=== PATIENT | female | born 1995 | race Caucasian/White ===

== ENCOUNTER 2023-03-04 08:11 | Observation (INO) | payer OTHER ==
[~2023-03-04] VITALS: Ht 154.9 cm; Wt 69.5 kg
[2023-03-04] VITALS (9 sets, daily range): BP systolic 129–153; BP diastolic 81–83; PULSE 94–122; RESP 16–26; TEMP 97.9–98.3; O2SAT 91–96
[2023-03-04] MEDS ORDERED: predniSONE 20 MG TAB PO ONE (08:50)
[2023-03-04] MEDS ORDERED: ALBUTEROL SULFATE/IPRATROPIU 3 ML SOL IH ONE ×2 (08:50→11:15)
[2023-03-04 09:36] LABS: FLU A ANTIGEN negative (NEGATIVE); FLU B ANTIGEN negative (NEGATIVE)
[2023-03-04] MEDS ORDERED: methylPREDNISolone SS 125 MG/2 ML VIAL IVP ONE (10:15)
[2023-03-04 10:42] LABS: BASOPHILS % (AUTO) 0.2 % (0.0-2.0); EOSINOPHILS # (AUTO) 0.6 K/uL (0-0.4); EOSINOPHILS % (AUTO) 5.2 % (0.0-4.0); HEMATOCRIT 41.2 % (36-48); HEMOGLOBIN 14.2 g/dL (12.0-16.0); LYMPHOCYTES # (AUTO) 1.5 K/uL (2.5-16.5); LYMPHOCYTES % (AUTO) 12.2 % (20.5-51.1); MEAN CORPUSCULAR HEMOGLOBIN 30 pg (27-31); MEAN CORPUSCULAR HGB CONC 35 g/dL (33-37); MEAN CORPUSCULAR VOLUME 87.4 fL (80-94); MONOCYTES # (AUTO) 0.6 K/uL (0.8-1.0); MONOCYTES % (AUTO) 5.3 % (1.7-9.3); NEUTROPHILS # (AUTO) 9.4 K/uL (1.8-7.7); NEUTROPHILS % (AUTO) 77.1 % (42.2-75.2); PLATELET COUNT (AUTO) 265 K/uL (140-450); RED BLOOD CELL COUNT(AUTO) 4.72 MIL/uL (4.20-5.40); RED CELL DISTRIBUTION WIDTH 13.1 % (11.6-13.7); WHITE BLOOD COUNT (AUTO) 12.2 K/uL (4.8-10.8)
[2023-03-04 10:52] LABS: BLOOD GAS BASE EXCESS -1.9 mmol/L (-2.0-2.0); BLOOD GAS HCO3 22.1 mmol/L (22-26); BLOOD GAS PCO2 35.7 mmHg (35-45); BLOOD GAS PO2 63.2 mmHg (75-100)
[2023-03-04 10:53] LABS: BLOOD GAS O2 SAT% 92.6 % (92.0-98.5)
[2023-03-04 11:10] LABS: ALANINE AMINOTRANSFERASE 40 U/L (12-78); ALBUMIN 3.8 g/dL (3.4-5.0); ALKALINE PHOSPHATASE 63 U/L (50-136); ANION GAP 10.6 (8-16); ASPARTATE AMINOTRANSFERASE 23 U/L (15-37); CARBON DIOXIDE 27.5 mmol/L (21-32); CHLORIDE 102 mmol/L (98-107); CREATININE 0.7 mg/dL (0.6-1.3); GFR ARICAN-AMERICAN 131 mL/min (>90); GFR NON ARICAN-AMERICAN 108 mL/min (>90); GLUCOSE 131 mg/dL (74-106); POTASSIUM 3.1 mmol/L (3.5-5.1); SODIUM SERUM 137 mmol/L (136-145); TOTAL BILIRUBIN 0.4 mg/dL (0.0-1.0); TOTAL PROTEIN, SERUM 7.7 g/dL (6.4-8.2); UREA NITROGEN, BLOOD 6 mg/dL (7-18)
[2023-03-04] MEDS ORDERED: CLOB0.0525 TP (12:23)
[2023-03-04] MEDS ORDERED: MAG SULF 2000 MG/WATER PREMIX 50 ML IV ONE (13:15)
[2023-03-04] MEDS ORDERED: ACETAMINOPHEN 325 MG TAB PO PRN (13:25)
[2023-03-04] MEDS ORDERED: MAGNESIUM OXIDE 400 MG TAB PO PRN (13:25)
[2023-03-04] MEDS ORDERED: ONDANSETRON 4 MG/2 ML VIAL IVP PRN (13:25)
[2023-03-04] MEDS ORDERED: POTASSIUM CHLORIDE 10 MEQ TABER PO PRN (13:25)
[2023-03-04] MEDS ORDERED: HYDROcodone/APAP 5/325 MG 1 TAB TAB PO PRN (13:25)
[2023-03-04] MEDS ORDERED: MORPHINE SULFATE 4 MG/ML SYR IVP PRN (13:25)
[2023-03-04] MEDS ORDERED: POTASSIUM CHLORIDE 10 MEQ TABER PO ONE (13:30)
[2023-03-04] MEDS ORDERED: methylPREDNISolone SS 40 MG/ML VIAL IVP SCH (13:35)
[2023-03-04] MEDS ORDERED: AZITHROMYCIN 500 MG in DEXTROSE 5% 250 ML IV SCH (15:00)
[2023-03-04] MEDS: NACL 0.9% 1,000 ML IV SCH (15:37)
[2023-03-04] MEDS ORDERED: AZITHROMYCIN 500 MG INJ VIAL IV ONE (16:45)
[2023-03-04] MEDS: ALBUTEROL SULFATE/IPRATROPIU 3 ML SOL IH SCH (19:01)
[2023-03-04] MEDS: methylPREDNISolone SS 40 MG/ML VIAL IVP SCH (21:16)
[2023-03-05] VITALS: BP 97/55; PULSE 85; PULSE 95; RESP 20; TEMP 97.8; O2SAT 94
[2023-03-05 00:47] VITALS: PULSE 120; RESP 22; O2SAT 94
[2023-03-05] MEDS: ALBUTEROL SULFATE/IPRATROPIU 3 ML SOL IH SCH ×2 (00:47→07:41)
[2023-03-05] MEDS ORDERED: MELATONIN 3 MG TAB PO PRN (01:10)
[2023-03-05] MEDS: NACL 0.9% 1,000 ML IV SCH ×2 (01:55→04:28)
[2023-03-05 04:00] VITALS: BP 113/78; PULSE 102; PULSE 85; RESP 18; TEMP 97.5; O2SAT 96
[2023-03-05] MEDS: methylPREDNISolone SS 40 MG/ML VIAL IVP SCH (04:22)
[2023-03-05 06:33] LABS: HEMATOCRIT 38.9 % (36-48); HEMOGLOBIN 13.2 g/dL (12.0-16.0); LYMPHOCYTES # (AUTO) 1.2 K/uL (2.5-16.5); MEAN CORPUSCULAR HEMOGLOBIN 30 pg (27-31); MEAN CORPUSCULAR HGB CONC 34 g/dL (33-37); MEAN CORPUSCULAR VOLUME 88.1 fL (80-94); MONOCYTES # (AUTO) 0.8 K/uL (0.8-1.0); MONOCYTES % (AUTO) 5.7 % (1.7-9.3); NEUTROPHILS # (AUTO) 12.4 K/uL (1.8-7.7); NEUTROPHILS % (AUTO) 86.3 % (42.2-75.2); PLATELET COUNT (AUTO) 287 K/uL (140-450); RED BLOOD CELL COUNT(AUTO) 4.42 MIL/uL (4.20-5.40); RED CELL DISTRIBUTION WIDTH 13.1 % (11.6-13.7); WHITE BLOOD COUNT (AUTO) 14.4 K/uL (4.8-10.8)
[2023-03-05 06:36] LABS: ANION GAP 14.4 (8-16); CARBON DIOXIDE 23.7 mmol/L (21-32); CREATININE 0.6 mg/dL (0.6-1.3); POTASSIUM 4.1 mmol/L (3.5-5.1)
[2023-03-05 07:41] VITALS: PULSE 74; RESP 20; O2SAT 94
[2023-03-05 08:00] VITALS: BP 104/69; PULSE 104; PULSE 72; RESP 18; RESP 20; TEMP 98; O2SAT 94; O2SAT 96
[2023-03-05] MEDS ORDERED: ENOXAPARIN 40 MG/0.4 ML SYR SUBQ SCH (09:00)
[2023-03-05] MEDS ORDERED: PRED20TA5 PO (11:08)
[2023-03-05] MEDS ORDERED: ALBU0.0912 IH (11:09)
[2023-03-05] MEDS ORDERED: AZIT250T4 PO (11:09)
[2023-03-05] MEDS ORDERED: FLUT1BLS13 IH (11:10)
[2023-03-05 11:29] VITALS: BP 104/69; PULSE 72; RESP 20; TEMP 98
== END 2023-03-05 11:45 | disposition home or self-care (01) ==
LOC: MED 08:11 → MTU 13:28
PROVIDERS: ADMIT Student in an Organized Health Care Education/Training Program; ATTEND Student in an Organized Health Care Education/Training Program
DX: J96.01 Acute respiratory failure with hypoxia (principal); Z20.822 Contact with and (suspected) exposure to COVID-19; J45.901 Unspecified asthma with (acute) exacerbation; E87.6 Hypokalemia; D72.829 Elevated white blood cell count, unspecified; Z79.899 Other long term (current) drug therapy
CPT/HCPCS: 36415; 36600; 71045; 71275; 80048; 80053; 82803; 84484; 85025; 85379; 93005; 94640; 96361; 96365; 96366; 96367; 96375; 96376; 99291; G0378; J0456; J1650; J2920; J2930; J3475; J7060; J7512; Q9967

== ENCOUNTER 2023-04-15 10:00 | Emergency (ER) | payer OTHER ==
[~2023-04-15] VITALS: Ht 154.9 cm; Wt 73.7 kg
[~2023-04-15 10:00] MED LIST: ALBU0.0912 IH; AZIT250T4 PO; CLOB0.0525 TP; FLUT1BLS13 IH; PRED20TA5 PO
[2023-04-15 10:07] VITALS: BP 117/70; PULSE 90; RESP 18; TEMP 97.7; O2SAT 96
[2023-04-15] MEDS ORDERED: ALBUTEROL SULFATE/IPRATROPIU 3 ML SOL IH ONE (10:40)
[2023-04-15 11:10] VITALS: PULSE 92; RESP 20; O2SAT 96
[2023-04-15] MEDS ORDERED: CRUSHER, PILL MC ONE (11:20)
[2023-04-15] MEDS ORDERED: PROM118S5 PO (11:50)
[2023-04-15 12:02] VITALS: BP 112/70; PULSE 87; RESP 20; TEMP 98; O2SAT 97
== END 2023-04-15 12:02 | disposition home or self-care (01) ==
LOC: MED 10:00
DX: J45.901 Unspecified asthma with (acute) exacerbation (principal); F17.200 Nicotine dependence, unspecified, uncomplicated; Z79.899 Other long term (current) drug therapy; Z79.2 Long term (current) use of antibiotics; Z91.018 Allergy to other foods; Z91.011 Allergy to milk products
CPT/HCPCS: 71045; 94640; 99283